=== PATIENT | female | born 1980 | race Hispanic/Latino ===

== ENCOUNTER 2022-04-23 21:10 | Emergency (ER) | payer BC ==
[~2022-04-23 21:10] MED LIST: Iopamidol 300 61% 100 ML VIAL FS ONE
[2022-04-23 22:23] LABS: #Basophils 0.1 10x3/uL (0.0-0.2); #Eosinphils 0.2 10x3/uL (0.0-0.5); #Monocytes 0.7 10x3/uL (0.0-1.1); #Neutrophils 7.6 10x3/uL (1.5-8.4); %Basophils 0.4 % (0.0-2.0); %Eosinophils 1.5 % (0.0-6.0); %Lymphocytes 25.6 % (18.0-47.0); %Monocytes 5.7 % (0.0-10.0); %Neutrophils 66.6 % (40.0-75.0); Hemoglobin 10.3 g/dL (12.0-15.5); Mean Corpuscular HGB CONC 33.8 g/dL (32.0-36.0); Mean Corpuscular Hemoglobin 29.1 pg (27.0-33.0); Mean Corpuscular Volume 86.2 fl (81.6-98.3); Mean Platelet Volume 11.2 fl (7.4-10.4); Platelet Count 258 10x3/uL (150-450); RBC Distribution Width 14.3 % (11.5-14.5); Red Blood Cell (RBC) Count 3.54 10x6/uL (3.90-5.03); White Blood Cell (WBC) Count 11.4 10x3/uL (3.5-10.5)
[2022-04-23] MEDS ORDERED: Morphine 4 MG/ML VIAL ONE (22:24)
[2022-04-23] MEDS ORDERED: Ondansetron PF 4 MG/2 ML Vial ONE ×2 (22:25→23:25)
[2022-04-23 22:36] LABS: Bilirubin Neg (Negative); Blood, Urine 25 (Negative); Clarity Clear (Clear); Glucose, Urine (Dipstick) Normal (Negative); Ketone, Urine Negative (Negative); Leukocyte 25 (Negative); Nitrite Negative (Negative); Protein, Urine (Dipstick) Negative (Neg-Trace); Specific Gravity, Urine 1.025 (1.002-1.036); Urobilinogen Normal mg/dL (Less than 2)
[2022-04-23 22:37] LABS: Pregnancy Test - Urine (BHCG) Negative (Negative); Pregu Control Background? CLEAR/WHITE (CLR/WHITE); Pregu Control Bar Appear? YES (CONTROL BAR); Specific Gravity 1.025 (1.002-1.036)
[2022-04-23 22:38] LABS: ALT (SGPT) 12 U/L (8-55); AST (SGOT) 15 U/L (5-34); Albumin 3.8 g/dL (3.5-5.0); Alkaline Phosphatase 64 U/L (40-110); Anion Gap 11 mmol/L (10-20); BUN (Urea Nitrogen) 10 mg/dL (7.0-18.7); Bilirubin, Total 0.3 mg/dL (0.2-1.2); Calc. Creatinine Clearance 0 mL/min (70-130); Calcium 9.3 mg/dL (7.8-10.44); Carbon Dioxide 27 mmol/L (22-29); Chloride 104 mmol/L (98-107); Estimated GFR 92; Globulin 3.8 g/dL (2.4-3.5); Glucose 98 mg/dL (70-105); Lipase 35 U/L (8-78); Potassium 3.2 mmol/L (3.5-5.1); Protein, Total 7.6 g/dL (6.0-8.3); Sodium 139 mmol/L (136-145)
[2022-04-23 22:54] LABS: Bacteria/HPF 1+ HPF (None Seen); Mucous/LPF 1+ LPF (<2+)
[2022-04-23] MEDS ORDERED: Ketorolac Tromethamine 30 MG/ML VIAL ONE (23:25)
== END 2022-04-23 23:56 | disposition home or self-care (01) ==
LOC: CSHERS 21:10
DX: R10.32 Left lower quadrant pain (principal); R11.10 Vomiting, unspecified
CPT/HCPCS: 74177; 80053; 81003; 81015; 81025; 83690; 85025; 96361; 96374; 96375; 96376; J1885; J2270; J2405; Q9967

== ENCOUNTER 2022-07-16 05:48 | Observation (INO) | payer BC ==
[2022-07-14 09:40] LABS: BHCG - Serum Negative (NEGATIVE); Pregs Control Background? CLEAR/WHITE (CLR/WHITE); Pregs Control Bar Appear? YES (CONTROL BAR)
[2022-07-14 09:41] LABS: Hemoglobin 11.6 g/dL (12.0-15.5); Mean Corpuscular HGB CONC 32.8 g/dL (32.0-36.0); Mean Corpuscular Volume 88.5 fl (81.6-98.3); Mean Platelet Volume 11.6 fl (7.4-10.4); Platelet Count 302 10x3/uL (150-450); RBC Distribution Width 13.4 % (11.5-14.5); White Blood Cell (WBC) Count 8.5 10x3/uL (3.5-10.5)
[2022-07-15 08:44] VITALS: BMI 34.0
[2022-07-16] MEDS ORDERED: Gabapentin 300 MG CAP ONE (06:11)
[2022-07-16] MEDS ORDERED: Famotidine/PF 20 mg/2ml Vial ONE (06:12)
[2022-07-16] MEDS ORDERED: CeleCOXIB 100 MG CAP ONE (06:12)
[2022-07-16] MEDS ORDERED: EPINEPHrine 1 MG/ML AMP ONE (06:24)
[2022-07-16] MEDS ORDERED: Bupivacaine PF 0.5% 30 ML VIAL ONE (06:25)
[2022-07-16] MEDS ORDERED: PROPOFOL 20 ML ONE (06:44)
[2022-07-16] MEDS ORDERED: Midazolam HCl 2 mg/2 ml Vial ONE ×2 (06:44→07:15)
[2022-07-16] MEDS ORDERED: Lidocaine 1% PF 5 ML VIAL ONE (06:45)
[2022-07-16] MEDS ORDERED: Ketorolac Tromethamine 30 MG/ML VIAL ONE (06:45)
[2022-07-16] MEDS ORDERED: Glycopyrrolate 0.2 MG/ML 5 ML SYRINGE ONE (06:45)
[2022-07-16] MEDS ORDERED: Rocuronium Bromide 10 MG/ML (10ML VIAL) ONE (06:45)
[2022-07-16] MEDS ORDERED: Fentanyl 100 MCG/2 ML VIAL ONE ×3 (06:45→10:49)
[2022-07-16] MEDS ORDERED: Ondansetron PF 4 MG/2 ML Vial ONE (06:45)
[2022-07-16] MEDS ORDERED: CEFAZOLIN 2 GM VIAL ONE (07:17)
[2022-07-16 08:20] LABS: SARS-CoV-2 NAA Rapid Test Not Detected (NotDetected)
[2022-07-16] MEDS ORDERED: PHENYLEPHRINE-NS 100 MCG/ML 10 ML SYRINGE ONE (09:15)
[2022-07-16] MEDS ORDERED: Meperidine HCl/PF 25 MG/ML VIAL ONE (09:21)
[2022-07-16] MEDS ORDERED: Simethicone Chewable 80 MG TAB PO PRN (09:41)
[2022-07-16] MEDS ORDERED: Bisacodyl 10 MG SUPP PR PRN (09:41)
[2022-07-16] MEDS ORDERED: Acetaminophen 325 MG TAB PO PRN (09:41)
[2022-07-16] MEDS ORDERED: Zolpidem Tartrate 5 MG TAB PO PRN (09:41)
[2022-07-16] MEDS ORDERED: Ondansetron PF 4 MG/2 ML Vial IVP PRN (09:41)
[2022-07-16] MEDS ORDERED: HYDROcodone/Acetaminophen 5/325 mg Tablet PO PRN (09:41)
[2022-07-16] MEDS ORDERED: Fentanyl 100 MCG/2 ML VIAL SLOW IVP PRN (09:41)
[2022-07-16] MEDS ORDERED: traMADol HCl 50 MG TAB PO PRN (09:41)
[2022-07-16] MEDS ORDERED: diphenhydrAMINE 25 MG CAP PO PRN (09:41)
[2022-07-16] MEDS: Sodium Chloride 0.9% 1,000 ML IV SCH ×2 (11:20→17:44)
[2022-07-16] MEDS: HYDROcodone/Acetaminophen 5/325 mg Tablet PO PRN ×3 (12:06→19:49)
[2022-07-16] MEDS: Ibuprofen 800 MG TAB PO SCH ×2 (15:16→16:46)
[2022-07-17] MEDS: Ibuprofen 800 MG TAB PO SCH ×2 (00:14→07:57)
[2022-07-17 04:47] LABS: Mean Corpuscular Hemoglobin 29.2 pg (27.0-33.0); Mean Corpuscular Volume 88.3 fl (81.6-98.3); Mean Platelet Volume 11.2 fl (7.4-10.4); Platelet Count 268 10x3/uL (150-450); RBC Distribution Width 13.4 % (11.5-14.5); Red Blood Cell (RBC) Count 3.43 10x6/uL (3.90-5.03); White Blood Cell (WBC) Count 21.3 10x3/uL (3.5-10.5)
[2022-07-17] MEDS: Sodium Chloride 0.9% 1,000 ML IV SCH ×2 (05:36→09:12)
[2022-07-17 08:00] VITALS: BP 113/60; TEMP 98.1
== END 2022-07-17 10:30 | disposition home or self-care (01) ==
LOC: CSHSDC 05:48 → CSHPP 10:42
PROVIDERS: ADMIT Obstetrics & Gynecology; ATTEND Obstetrics & Gynecology
PROC: 0UT94ZZ Resection of Uterus, Percutaneous Endoscopic Approach (ICD-10-PCS; principal; 2022-07-16)
PROC: 0UT74ZZ Resection of Bilateral Fallopian Tubes, Percutaneous Endoscopic Approach (ICD-10-PCS; 2022-07-16)
DX: D25.9 Leiomyoma of uterus, unspecified (principal); N92.0 Excessive and frequent menstruation with regular cycle; N80.03 Adenomyosis of the uterus; N94.6 Dysmenorrhea, unspecified; N87.9 Dysplasia of cervix uteri, unspecified; N72 Inflammatory disease of cervix uteri; N73.6 Female pelvic peritoneal adhesions (postinfective); N80.209 Endometriosis of unspecified fallopian tube, unspecified depth; E66.9 Obesity, unspecified; F41.9 Anxiety disorder, unspecified; Z20.822 Contact with and (suspected) exposure to COVID-19; Z79.899 Other long term (current) drug therapy; N83.8 Other noninflammatory disorders of ovary, fallopian tube and broad ligament; K43.9 Ventral hernia without obstruction or gangrene; Z68.34 Body mass index [BMI] 34.0-34.9, adult
CPT/HCPCS: 36415; 84703; 85027; 86850; 86900; 86901; 88307; 88341; 88342; C1776; J0171; J1885; J2175; J2250; J2405; J2704; J3010; S0020; S0028; U0002

== ENCOUNTER 2023-10-01 11:19 | Emergency (ER) | payer BC ==
[2023-10-01 12:36] LABS: #Basophils 0.1 10x3/uL (0.0-0.2); #Eosinphils 0.2 10x3/uL (0.0-0.5); #Monocytes 0.4 10x3/uL (0.0-1.1); #Neutrophils 5.2 10x3/uL (1.5-8.4); %Basophils 0.8 % (0.0-2.0); %Eosinophils 2.6 % (0.0-6.0); %Lymphocytes 31.1 % (18.0-47.0); %Monocytes 5.1 % (0.0-10.0); %Neutrophils 60.2 % (40.0-75.0); Hematocrit 32.9 % (34.9-44.5); Hemoglobin 10.9 g/dL (12.0-15.5); Mean Corpuscular HGB CONC 33.1 g/dL (32.0-36.0); Mean Corpuscular Hemoglobin 30.4 pg (27.0-33.0); Mean Corpuscular Volume 91.9 fl (81.6-98.3); Platelet Count 297 10x3/uL (150-450); RBC Distribution Width 13.2 % (11.5-14.5); Red Blood Cell (RBC) Count 3.58 10x6/uL (3.90-5.03); White Blood Cell (WBC) Count 8.6 10x3/uL (3.5-10.5)
[2023-10-01 12:46] LABS: ALT (SGPT) 18 U/L (8-55); AST (SGOT) 18 U/L (5-34); Albumin 3.9 g/dL (3.5-5.0); Alkaline Phosphatase 64 U/L (40-110); Anion Gap 10 mmol/L (10-20); BUN (Urea Nitrogen) 9 mg/dL (7.0-18.7); Bilirubin, Total 0.2 mg/dL (0.2-1.2); Calc. Creatinine Clearance 0 mL/min (70-130); Calcium 8.7 mg/dL (7.8-10.44); Carbon Dioxide 27 mmol/L (22-29); Chloride 105 mmol/L (98-107); Estimated GFR 93; Globulin 3.8 g/dL (2.4-3.5); Glucose 134 mg/dL (70-105); Lipase 30 U/L (8-78); Potassium 3.6 mmol/L (3.5-5.1); Protein, Total 7.7 g/dL (6.0-8.3); Sodium 138 mmol/L (136-145)
[2023-10-01 13:02] LABS: BHCG - Serum Negative (NEGATIVE); Pregs Control Background? CLEAR/WHITE (CLR/WHITE); Pregs Control Bar Appear? YES (CONTROL BAR)
[2023-10-01] MEDS ORDERED: Acetaminophen 500 MG TAB ONE (13:07)
[2023-10-01] MEDS ORDERED: Ketorolac Tromethamine 30 MG (1 mL) VIAL ONE (13:07)
[2023-10-01 13:20] LABS: Bilirubin Neg (Negative); Blood, Urine 10 (Negative); Clarity Clear (Clear); Glucose, Urine (Dipstick) Normal (Negative); Ketone, Urine Negative (Negative); Leukocyte Negative (Negative); Nitrite Negative (Negative); Protein, Urine (Dipstick) Negative (Neg-Trace); Specific Gravity, Urine 1.015 (1.005-1.030); Urobilinogen Normal mg/dL (Less than 2); pH, Urine 6.5 (5.0-9.0)
[2023-10-01 14:01] LABS: Bacteria/HPF None Seen HPF (None Seen); CAUTI Indications for Culture Pelvic or flank pain; RBC/HPF 0-3 HPF (0-3); Squamous Epithelial 0-3 HPF (0-3); WBC/HPF None Seen HPF (0-3)
[2023-10-01 14:03] LABS: Urine Culture Reflex No No
== END 2023-10-01 14:50 | disposition home or self-care (01) ==
LOC: CSHERS 11:19
DX: D64.9 Anemia, unspecified (principal)
CPT/HCPCS: 36415; 80053; 81001; 83690; 84703; 85025; 96372; 99284; J1885

== ENCOUNTER 2024-01-10 21:32 | Emergency (ER) | payer BC ==
[2024-01-10] MEDS ORDERED: Ondansetron PF 4 MG/2 ML Vial ONE (22:43)
[2024-01-10] MEDS ORDERED: Famotidine/PF 20 mg/2ml Vial ONE (22:44)
[2024-01-10 22:50] LABS: #Basophils 0.08 10x3/uL (0.0-0.2); #Eosinphils 0.13 10x3/uL (0.0-0.5); #Monocytes 0.73 10x3/uL (0.0-1.1); #Neutrophils 13.03 10x3/uL (1.5-8.4); %Basophils 0.5 % (0.0-2.0); %Eosinophils 0.8 % (0.0-6.0); %Monocytes 4.4 % (0.0-10.0); %Neutrophils 77.9 % (40.0-75.0); Hemoglobin 11.5 g/dL (12.0-15.5); Mean Corpuscular HGB CONC 33.8 g/dL (32.0-36.0); Mean Corpuscular Hemoglobin 30.2 pg (27.0-33.0); Mean Corpuscular Volume 89.2 fl (81.6-98.3); Mean Platelet Volume 10.9 fl (7.4-10.4); Platelet Count 322 10x3/uL (150-450); RBC Distribution Width 13.3 % (11.5-14.5); Red Blood Cell (RBC) Count 3.81 10x6/uL (3.90-5.03); White Blood Cell (WBC) Count 16.7 10x3/uL (3.5-10.5)
[2024-01-10 23:06] LABS: ALT (SGPT) 16 U/L (8-55); AST (SGOT) 32 U/L (5-34); Albumin 3.6 g/dL (3.5-5.0); Alkaline Phosphatase 78 U/L (40-110); Anion Gap 14 mmol/L (10-20); BUN (Urea Nitrogen) 11 mg/dL (7.0-18.7); Bilirubin, Total 0.2 mg/dL (0.2-1.2); Calc. Creatinine Clearance 0 mL/min (70-130); Calcium 9.4 mg/dL (7.8-10.44); Carbon Dioxide 26 mmol/L (22-29); Chloride 100 mmol/L (98-107); Estimated GFR 87; Globulin 4.1 g/dL (2.4-3.5); Glucose 107 mg/dL (70-105); Lipase 54 U/L (8-78); Potassium 3.6 mmol/L (3.5-5.1); Protein, Total 7.7 g/dL (6.0-8.3); Sodium 136 mmol/L (136-145)
[2024-01-10 23:11] LABS: Troponin I Less than 0.010 ng/mL (< 0.028)
[2024-01-11] MEDS ORDERED: Ondansetron PF 4 MG/2 ML Vial ONE (00:05)
[2024-01-11] MEDS ORDERED: Morphine 2 MG/ML VIAL ONE (00:05)
== END 2024-01-11 01:26 | disposition home or self-care (01) ==
LOC: CSHERS 21:32
DX: K85.90 Acute pancreatitis without necrosis or infection, unspecified (principal)
CPT/HCPCS: 74176; 80053; 83690; 84484; 85025; 93005; 96361; 96374; 96375; 96376; J2272; J2405; S0028